=== PATIENT | male | born 1995 | race Caucasian/White ===

== ENCOUNTER 2018-09-12 23:14 | Emergency (ER) | payer OTHER ==
[2018-09-12 23:21] VITALS: BP 140/90
--- NOTE | 2018-09-12 23:30 | EDPHY ---
H & P Smoking Status: Never smoked Time Seen by Provider: 09/12/18 23:21 HPI/ROS: CHIEF COMPLAINT: Left index finger laceration HISTORY OF PRESENT ILLNESS: 22-year-old [id number] male was using a knife when he sustained accidental laceration left index finger distal phalanx flap laceration. Occurred shortly prior to arrival. This was accidental. Tetanus up-to-date. No paresthesia. PRIMARY CARE PROVIDER: REVIEW OF SYSTEMS: 10 systems reviewed and are negative with exception of illness mentioned in the history of present illness PHYSICAL EXAM (Prior to examination, patient consented to physical exam, hands were washed and my usual and customary physical exam procedures followed) 1) GENERAL: Well-developed, well-nourished, alert and oriented. Appears to be in no acute distress. 2) HEAD: Normocephalic 3) HEENT: sclera anicteric 4) LUNGS: Breathing comfortably. 5) SKIN: Left index finger distal phalanx flap laceration with viable flap tissue. No evidence of infection. No foreign body. (Renato Uriostegui) Constitutional: Initial Vital Signs Temperature (C) 36.7 C 09/12/18 23:16 Heart Rate 89 09/12/18 23:16 Respiratory Rate 16 09/12/18 23:16 Blood Pressure 140/90 H 09/12/18 23:16 O2 Sat (%) 98 09/12/18 23:16 O2 Delivery Mode Room Air MDM/Departure - MDM Procedures: Procedure: Laceration repair. I explained the indications, risks and benefits for both laceration repair and anesthetic administration. Verbal consent was obtained from the patient. The laceration on the left index finger was anesthetized using 0.5% bupivicaine without epinephrine digital nerve block. After anesthetic administered the patient was observed for a period of time and had no apparent adverse effects. The wound was cleaned, prepped, draped in normal sterile fashion and explored to its base. No foreign body seen, no foreign bodies palpated. There were no deep structures involved. No tendon injury was identified. The tissue was tacked down with 2 simple interrupted 5 O Prolene sutures. The wound repair was simple. The procedure was performed by myself. Patient has been informed that scarring will occur, although efforts have been made to minimize this. ( Renato Uriostegui) ED Course/Re-evaluation: Care of patient under supervision of secondary supervising physician Dr Landaverde . (Gila,Renato Macias) PHYSICIAN DOCUMENTATION: The patient was evaluated and managed by the Physician Accounts Payable Technician. My co- signature indicates that I have reviewed this chart and I agree with the findings and plan of care as documented. I am the secondary supervising physician. (Marcie Landaverde) - Depart Disposition: Home, Routine, Self-Care Clinical Impression: Finger laceration Condition: Good Instructions: Laceration (ED) Additional Instructions: Return to the ER if you develop redness, swelling, discharge, warmth to the wound, red streaks going up your arm, or any other symptoms that concern you. Referrals: Return, to the ER in 10 days for suture removal [Other] - As per Instructions
== END 2018-09-12 23:48 | disposition home or self-care (01) ==
PROC: 0HQGXZZ Repair Left Hand Skin, External Approach (ICD-10-PCS; principal; 2018-09-12)
DX: S61.211A Laceration without foreign body of left index finger without damage to nail, initial encounter (principal); W26.0XXA Contact with knife, initial encounter; Y92.9 Unspecified place or not applicable; Y99.9 Unspecified external cause status; Y93.9 Activity, unspecified